=== PATIENT | female | born 1935 | race Caucasian/White ===

== ENCOUNTER 2017-09-15 14:58 | Inpatient (IN) | payer MEDICARE ==
[~2017-09-15] VITALS: Ht 157.5 cm; Wt 90.7 kg
[~2017-09-15 14:58] MED LIST: ALLOPURINOL 30300 M2 PO; ANASTROZOLE1 MG PO; ATIVAN0.5 MG PO; BENADRYL25 MG PO; BISACODYL SUPP10 MG RECTAL; CARAFATE1 GM/10 ML PO; CELEXA20 MG PO; CIPROFLOXACIN500 M1 PO; CO Q-10100 MG PO; CO-ENZYME Q-1010 MG PO; COLACE100 MG PO; COZAAR 50 MG TA50 M1 PO; COZAAR 50 MG TA50 M2 PO; CRANBERRY URIN1 EACH PO; DOC-Q-LACE100 MG PO; EDECRIN PO; LEVAQUIN 500 M500 MG PO; MACROBID 100 M100 M2 PO; MACROBID 100 M100 M3 PO; MIRALAX17 GM PO; NEXIUM40 MG PO; NORCO 5-325 TA1 EAC1 PO; NORCO 5-325 TA1 EACH PO; PRAVACHOL40 MG PO; PROBIOTIC1 EAC1 PO; SUPER B-50 COM1 EACH PO; TURMERIC500 M2 PO; TURMERIC500 MG PO; TYLENOL325 MG PO; VITAMIN B-12500 MCG PO; VITAMIN B12-FO1 EAC1 PO; VITAMIN D2000 UNIT PO; VITAMIN D3400 UNIT PO; VITAMINC500 PO; [UNRECOGNIZED DRUG - OTHER] PO
[2017-09-15 15:02] VITALS: BP 155/46
[2017-09-15] MEDS ORDERED: LASIX 20 MG TAB20 MG PO (15:16)
[2017-09-15 16:00] LABS: ABSOLUTE BASOPHILS 0.1 thou/uL (0.0-0.2); ABSOLUTE EOSINOPHILS 0.1 thou/uL (0.0-0.7); ABSOLUTE LYMPHOCYTES 1.9 thou/uL (0.8-5.3); ABSOLUTE MONOCYTES 0.5 thou/uL (0.0-1.2); ABSOLUTE NEUTROPHILS 5.8 thou/uL (1.6-8.1); BASOPHILS 0.8 %; EOSINOPHILS 1.5 %; HEMATOCRIT 40.2 % (37.0-47.0); HEMOGLOBIN 13.4 gm/dL (12.0-15.0); LYMPHOCYTES 22.4 %; MCH 32.4 pg (26.0-34.0); MCHC 33.4 g/dL (28.0-37.0); MCV 97.3 fL (80.0-100.0); MONOCYTES 5.9 %; MPV 8.4 fl. (7.2-11.1); NUCLEATED RBCS 0 /100WBC; PLATELET COUNT* 277 thou/uL (150-400); POLYS 69.4 %; RBC 4.14 mil/uL (4.20-5.00); RDW-CV 15.7 % (10.5-14.5); WBC 8.3 thou/uL (4.0-11.0)
[2017-09-15 16:05] LABS: ANION GAP 4 mmol/L (7-16); BUN 33 mg/dL (7-18); CALCIUM 9.1 mg/dL (8.5-10.1); CHLORIDE 100 mmol/L (98-107); CO2 30 mmol/L (21-32); CREATININE 1.1 mg/dL (0.6-1.3); GLUCOSE 145 mg/dL (70-99); SODIUM 134 mmol/L (136-145)
[2017-09-15 16:16] LABS: ALBUMIN 3.5 g/dL (3.4-5.0); ALKALINE PHOSPHATASE 44 U/L (46-116); NT-PRO BRAIN NAT PEPTIDE 119 pg/mL (<300); SGOT 58 U/L (15-37); SGPT 36 U/L (30-65); TOTAL BILIRUBIN 0.4 mg/dL (<0.1-1.0); TOTAL PROTEIN 7.6 g/dL (6.4-8.2); TROPONIN-I LEVEL <0.06 ng/mL (<0.06)
[2017-09-15 16:20] LABS: URINE BILIRUBIN NEGATIVE (Negative); URINE BLOOD NEGATIVE (Negative); URINE CLARITY CLEAR; URINE COLOR YELLOW; URINE GLUCOSE-RANDOM NEGATIVE (Negative); URINE KETONES NEGATIVE (Negative); URINE NITRITE-REFLEX NEGATIVE (Negative); URINE PROTEIN NEGATIVE (Negative); URINE UROBILINOGEN 0.2 E.U./dl (0.2-1.0)
[2017-09-15 16:30] LABS: URINE LEUKOCYTES-REFLEX 2+ (Negative)
[2017-09-15 16:35] LABS: MUCUS None Seen strn/LPF (None Seen); SQUAMOUS >10 Many /LPF (0-3)
[2017-09-15 16:36] LABS: URINE WBC-REFLEX >25 Many /HPF (0-5); WBC CLUMPS Few (None Seen)
[2017-09-15 16:37] LABS: CASTS None Seen /LPF (None Seen); CRYSTALS None Seen /LPF (None Seen); URINE RBC 0-2 Rare /HPF (0-2)
--- NOTE | 2017-09-15 18:55 | NUR ---
DOCUMENTATION OF NSG STUDENT RICKIE DAVIS REVIEWED, AGREE W/ SAME.
[2017-09-15 20:16] VITALS: BP 155/43
[2017-09-15 21:00] VITALS: BP 163/63
[2017-09-16 00:02] VITALS: BP 127/52
[2017-09-16 03:33] VITALS: BP 132/46
--- NOTE | 2017-09-16 06:24 | NUR ---
RECEIVED REPORT AND ASSUMED CARE AT 2030. PT TRANSFERED FROM ED TO ROOM 202. VSS. CARDIAC MONITORING IN PLACE. ASSESSMENT COMPLETED CHARTED. ADMIN COMPLETED BY NURSING. PT ON RA, UP WITH ASSIST WITH CANE TO BSC. MED REC COMPLETED. PT SON/DPOA AT BEDSIDE DURING ADMISSION. HOURLY ROUNDING COMPLETED, ALL NEEDS MET. POSITION CHANGES ENCOURAGED WITH PT, EDUCATED ON RISK FOR PRESSURE ULCERS. PT COMMUNICATES UNDERSTANDING. WILL CONTINUE TO MONITOR FOR REMAINDER OF THE SHIFT
--- NOTE | 2017-09-16 08:42 | NUR ---
ASSUMED PT. CARE AND RECEIVED REPORT AT 0730. PT A/OX4, MONITOR ON TRACING SR WITH PVC. PT. DENIES CURRENT PAIN. UPDATED ON PLAN OF CARE TO INCLUDE NPO FOR CV CONSULT. FULL ASSESSMENT COMPLETED, REFER TO CHARTING. PT. ASSISTED TO BSC, SLOW WITH MOVEMENT. CALL LIGHT IN REACH, FALL PRECAUTIONS IN PLACE. WILL CONTINUE WITH PLAN OF CARE.
[2017-09-16 09:00] VITALS: BP 161/61
[2017-09-16 11:00] VITALS: BP 158/56
--- NOTE | 2017-09-16 12:40 | EKG ---
[place] [address] ELECTROCARDIOGRAM REPORT Name: SHADE CHENGENDOLYN Yulisa Room: [address] IN [facility]#: [id number] Admission: 09/15/17 Attend Phys: Katia Reeves MD Discharge: Date of : 35 Report #: [id number] THIS REPORT FOR: //name// [facility] ED Test Date: 2017-09-15 Test Time: 15:03:48 Pat Name: WIL CHENG Department: Room: Gender: F Pill Packer: MS : 1935 Requested By: Anastasia Mercado Order Number: [id number] MD: Duglas Brown Measurements Intervals Campbell Rate: 73 P: 28 GA: 185 QRS: -15 QRSD: 104 T: 52 QT: 428 QTc: 472 Interpretive Statements Sinus rhythm Ventricular premature complex Probable left atrial enlargement Borderline left axis deviation Compared to ECG 03/09/2016 10:58:48 No significant changes Electronically Signed On 09-16-2017 12:40:37 CDT by Duglas Brown [email or web address] <ELECTRONICALLY SIGNED> By: Duglas Brown MD, FAC 09/16/17 1240 1503 1503 Duglas Brown MD, [facility] /EPI
[2017-09-16] MEDS ORDERED: ASPIR 8181 MG PO (13:57)
[2017-09-16] MEDS ORDERED: CIPRO500 MG PO (13:57)
[2017-09-16 14:15] VITALS: BP 158/56
--- NOTE | 2017-09-16 14:45 | NUR ---
DC ORDERS RECEIVED. IV AND MONITOR REMOVED. PT. AND SON GIVEN DC INSTRUCTIONS, SCRIPTS, AND CARENOTES. PT. LEFT VIA WHEELCHAIR TO RETURN HOME IN PERSONAL VEHICLE, ALL BELONGINGS ACCOUNTED FOR.
--- NOTE | 2017-10-05 10:50 | CON ---
[address] [address] CONSULTATION Name: SKYLARWIL L Room: [address]R.#: [id number] Admission: 09/15/17 Attend Phys: Katia Reeves MD Discharge: 09/16/17 Date of : 35 Report #: [id number] THIS REPORT FOR: //name// CC: Katia Garcia CHIEF COMPLAINT: Chest pain. HISTORY OF PRESENT ILLNESS: The patient is an 82-year-old woman who has a history of breast cancer, had just taken her blood pressure medicines and breast cancer medications and had a sudden onset of sharp left-sided pleuritic-type chest pain. It occurred at rest and was not associated with physical activity and she was not diaphoretic. It lasted for several minutes long. She went to the emergency room, her ECG was normal and she was admitted for evaluation and her subsequent cardiac troponin levels have all been normal. This morning, she is symptom-free. She has noted some other potential side effects with her estrogen receptor antagonist including swelling and shortness of breath, but these have not really been progressive. She has no documented history of heart disease. She thinks she had a heart catheterization at [place] in 2009. She also has a history of valvular heart disease. She is followed by Dr. Hastings. None of these problems have been significant over the last several months. Clinically, she is without exertional shortness of breath and has no edema. 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 PAST SURGICAL HISTORY: Status post left mastectomy for breast cancer. HOME MEDICATIONS: Include the anastrozole 1 mg daily, vitamins, Cozaar 50 mg at bedtime, Lasix 20 mg daily, docusate acetaminophen. ALLERGIES: SHE HAS ALLERGIES TO AMLODIPINE, ATORVASTATIN, COLCHICINE, CORN SYRUP, METOPROLOL, SULFA, AMOXICILLIN, AZITHROMYCIN, HYDROCHLOROTHIAZIDE, AND TRIAMTERENE. FAMILY HISTORY: Positive for hypertension. SOCIAL HISTORY: She is a nonsmoker. REVIEW OF SYSTEMS: GENERAL: No fevers or chills. GASTROINTESTINAL: [place] [address] CONSULTATION Name: WIL CHENG Room: [address]#: [id number] Admission: 09/15/17 Attend Phys: Katia Reeves MD Discharge: 09/16/17 Date of : 35 Report #: [id number] HEMATOLOGIC: No anemia or bleeding disorders. RENAL: No history of kidney failure. CARDIOVASCULAR: Positive chest pain. No shortness of breath, no palpitations, no orthopnea, no PND, mild edema. NEUROLOGIC: Denies seizures. Denies headaches or blurry vision. SKIN: No rashes. : Positive dysuria. ENDOCRINE: She is not known to be a diabetic. PHYSICAL EXAMINATION: VITAL SIGNS: Weight is 200 pounds. Blood pressure is 132/46 this morning, it was 160/61; pulse is 59, sinus rhythm on telemetry. GENERAL: This is a pleasant, moderately obese, elderly female. She is in no apparent distress. NECK: Supple, no jugular venous distention. CARDIOVASCULAR: Regular, I cannot hear a murmur. LUNGS: Clear to auscultation bilaterally. ABDOMEN: Soft, nontender. EXTREMITIES: There is no peripheral edema. SKIN: Warm, dry. PSYCHIATRIC: The patient has appropriate mood and affect. LABORATORY DATA: Hemoglobin is 13.4, white blood cell count is 8.3, platelet count is 277,000. Sodium is 134, potassium 5.0, chloride 100, CO2 is 30, BUN is 33, creatinine is 1.1. Troponin I is 0.06 x 2 sets. BNP is 119. Chest x-ray showed no acute radiographic abnormality. IMPRESSION: 1. Chest pain. Her symptoms seem pleuritic, possibly related to her prior surgeries versus another process. She has ruled out for an MT and she does have cardiovascular risk factors including age and hypertension as well as unknown lipid status. She can be evaluated with an outpatient stress test with her usual sap ppm consultant, Dr. Hastings and she was instructed to make an appointment next week for this. 2. Hypertension. We will continue with ARB therapy. 3. History of breast cancer. She will continue with routine medical therapy including her estrogen antagonist. Thank you for allowing us to participate in her care. <ELECTRONICALLY SIGNED> By: Duglas Brown MD, FACC 10/05/17 1050 1110 [id number] Brown MD, FACC /nt
== END 2017-09-16 14:34 | disposition still patient (30) | DRG 194 ==
LOC: M.ERS 14:58 → M.TBA-ER 19:00 → M.2W 20:27
PROVIDERS: Physician Assistant Surgical; ADMIT Internal Medicine
DX: R09.1 Pleurisy (principal); N39.0 Urinary tract infection, site not specified; M10.9 Gout, unspecified; I10 Essential (primary) hypertension; Z86.73 Personal history of transient ischemic attack (TIA), and cerebral infarction without residual deficits; Z90.49 Acquired absence of other specified parts of digestive tract; Z90.12 Acquired absence of left breast and nipple; Z87.440 Personal history of urinary (tract) infections; Z85.3 Personal history of malignant neoplasm of breast; Z79.899 Other long term (current) drug therapy; Z88.1 Allergy status to other antibiotic agents; Z88.0 Allergy status to penicillin; Z88.2 Allergy status to sulfonamides; Z91.018 Allergy to other foods; Z88.6 Allergy status to analgesic agent; Z82.49 Family history of ischemic heart disease and other diseases of the circulatory system

== ENCOUNTER → 2018-05-30 | Outpatient (CLI) | payer MEDICARE ==
[~2018-05-30] MED LIST changes: +ASPIR 8181 MG PO; +CIPRO500 MG PO; +LASIX 20 MG TAB20 MG PO
== END ==
LOC: M.RAD 14:52
DX: R92.8 Other abnormal and inconclusive findings on diagnostic imaging of breast (principal); Z90.12 Acquired absence of left breast and nipple

== ENCOUNTER → 2018-06-22 | Outpatient (CLI) | payer MEDICARE | LOC: M.CT 06-18 15:42 | DX: R59.1 Generalized enlarged lymph nodes (principal); I11.9 Hypertensive heart disease without heart failure; R91.8 Other nonspecific abnormal finding of lung field; C50.919 Malignant neoplasm of unspecified site of unspecified female breast; M10.9 Gout, unspecified; Z90.49 Acquired absence of other specified parts of digestive tract; Z90.12 Acquired absence of left breast and nipple ==

== ENCOUNTER → 2018-11-28 | Outpatient (CLI) | payer MEDICARE ==
[~2018-11-28] MED LIST changes: +ROSUVASTATIN CA40 MG PO; +ZYLOPRIM300 MG PO
== END ==
LOC: M.CT 06-28 10:30
DX: R91.1 Solitary pulmonary nodule (principal); J98.4 Other disorders of lung; N28.1 Cyst of kidney, acquired; C50.412 Malignant neoplasm of upper-outer quadrant of left female breast

== ENCOUNTER 2018-12-20 17:42 | Inpatient (IN) | payer MEDICARE ==
[~2018-12-20] VITALS: Ht 157.5 cm; Wt 103.0 kg
[~2018-12-20 17:42] MED LIST changes: -ROSUVASTATIN CA40 MG PO
[2018-12-20 17:47] VITALS: BP 167/53
[2018-12-20 18:22] LABS: ABSOLUTE EOSINOPHILS 0.1 thou/uL (0.0-0.7); ABSOLUTE LYMPHOCYTES 1.9 thou/uL (0.8-5.3); ABSOLUTE MONOCYTES 0.5 thou/uL (0.0-1.2); BASOPHILS 0.3 %; EOSINOPHILS 2.2 %; HEMATOCRIT 42.8 % (37.0-47.0); HEMOGLOBIN 14.4 gm/dL (12.0-15.0); MCH 31.6 pg (26.0-34.0); MCHC 33.7 g/dL (28.0-37.0); MCV 93.9 fL (80.0-100.0); MONOCYTES 8.2 %; MPV 7.4 fl. (7.2-11.1); NUCLEATED RBCS 0 /100WBC; PLATELET COUNT* 224 thou/uL (150-400); POLYS 60.3 %; RBC 4.55 mil/uL (4.20-5.00); RDW-CV 13.8 % (10.5-14.5); WBC 6.6 thou/uL (4.0-11.0)
[2018-12-20 18:29] LABS: PROTIME 10.6 Seconds (9.20-11.50)
[2018-12-20 18:33] LABS: CALCIUM 9.6 mg/dL (8.5-10.1); CREATININE 1.2 mg/dL (0.6-1.3); POTASSIUM 4.2 mmol/L (3.5-5.1)
[2018-12-20 18:38] LABS: ALBUMIN 3.6 g/dL (3.4-5.0); TOTAL BILIRUBIN 0.2 mg/dL (<0.1-1.0); TOTAL PROTEIN 7.1 g/dL (6.4-8.2)
[2018-12-20 19:50] VITALS: BP 172/53
[2018-12-20 20:00] VITALS: BP 171/57
[2018-12-21] VITALS: BP 143/50
[2018-12-21 01:32] LABS: CHOLESTEROL 283 mg/dL (<200); HDL CHOLESTEROL 40 mg/dL (>40); LDL CHOLESTEROL 209 mg/dL (<100); TC:HDL 7.1 Ratio (Not establshd); TRIGLYCERIDE 174 mg/dL (<150); VLDL 35 mg/dL (<40)
[2018-12-21 01:34] LABS: SERUM ASSESSMENT CLEAR
[2018-12-21 03:29] LABS: URINE BILIRUBIN NEGATIVE (Negative); URINE BLOOD NEGATIVE (Negative); URINE CLARITY CLOUDY; URINE COLOR YELLOW; URINE GLUCOSE-RANDOM NEGATIVE (Negative); URINE KETONES NEGATIVE (Negative); URINE LEUKOCYTES-REFLEX 1+ (Negative); URINE NITRITE-REFLEX POSITIVE (Negative); URINE PROTEIN NEGATIVE (Negative); URINE SPECIFIC GRAVITY 1.015 (1.005-1.030); URINE UROBILINOGEN 0.2 E.U./dl (0.2-1.0)
[2018-12-21 04:00] VITALS: BP 116/41
[2018-12-21 04:12] LABS: SQUAMOUS 0-3 Few /LPF (0-3); WBC CLUMPS Moderate (None Seen)
[2018-12-21 04:13] LABS: BACTERIA-REFLEX >30 Many /HPF (None Seen); CASTS None Seen /LPF (None Seen); CRYSTALS None Seen /LPF (None Seen); MUCUS 0-3 Light strn/LPF (None Seen); URINE RBC 0-2 Rare /HPF (0-2); URINE WBC-REFLEX >25 Many /HPF (0-5)
--- NOTE | 2018-12-21 06:01 | NUR ---
REPORT RECIEVED FROM ER. ER REPORTED PTS NIH WAS 0, ON ADMISSION TO FLOOR, PT HAD LEFT SIDED FACIAL DROOP, SLURRED SPEACH, AND WEAKNESS. NEUROLOGY CONSULT SENT OUT. ADMISSION DOCUMENTED. PT SENT TO MRI. PT PULLED OUT IV THIS SHIFT AND REFUSED ANOTHER IV AT THIS TIME. NOTIFIED. UA OBTAINED. TELE MONITOR IN PLACE. PT UP TO BSC TO VOID. WILL CONTINUE WITH PLAN OF CARE.
[2018-12-21 07:30] VITALS: BP 115/42
[2018-12-21 10:48] LABS: ALBUMIN 3.3 g/dL (3.4-5.0); CALCIUM 9.2 mg/dL (8.5-10.1); POTASSIUM 4.7 mmol/L (3.5-5.1); TOTAL BILIRUBIN 0.3 mg/dL (<0.1-1.0); TOTAL PROTEIN 6.5 g/dL (6.4-8.2)
[2018-12-21 12:08] VITALS: BP 111/48
--- NOTE | 2018-12-21 14:17 | NUR ---
Pt is A&O. Resides at home with her son and dtr. Pt states that she has a lady that comes in once/week to assist with bathing. Pt states that she is able to complete her own dressing. Son and dtr share IADLs. Pt has a cane, walker, wc and shower chair at home. Pt states that she is current with [facility]. Hx of [facility] . Hx of skilled at [facility]. Pt is hoping to return home at [place]. Following
[2018-12-21 16:26] VITALS: BP 158/59
--- NOTE | 2018-12-21 17:54 | NUR ---
VSS, ASSUMED CARE IN THE AM, ASSESSMENT PERFOREMD AND CHARTED, FALL PRECAUTIONS IN PLACE AND CALL LIGHT IN REACH, PT IS A&O4 AMD IS UP WITH ONE TO BSC, PT DENIES ANY PIAN HER NIH IS A 3, PT GOAL IS TO WORK WITH PT/OT/SP, AND ALSO SIT UP IN CHAIR, AT THIS TIME PT HAVE MET GOALS, PT IS TRACING SR/SB ON THE MONITOR, HOURLY ROUNDS COMPLETED.
--- NOTE | 2018-12-21 18:24 | EKG ---
[place] [address] ELECTROCARDIOGRAM REPORT Name: SKYLARWIL Room: [address] ADM IN .R.#: [id number] Admission: 12/20/18 Attend Phys: Tammy Correa Discharge: Date of : 35 Report #: [id number] THIS REPORT FOR: //name// [facility] ED Test Date: 2018-12-20 Test Time: 17:52:39 Pat Name: WIL CHENG Department: Room: [facility] Gender: F Pad Extraction Tender: vt : 1935 Requested By: Tesfaye Marquez Order Number: [id number] MD: Hayder Celis Measurements Intervals Welcome Rate: 65 P: 61 IA: 182 QRS: -9 QRSD: 105 T: 59 QT: 448 QTc: 466 Interpretive Statements Sinus rhythm Atrial premature complex Compared to ECG 09/15/2017 15:03:48 Atrial premature complex(es) now present Ventricular premature complex(es) no longer present Electronically Signed On 12-21-2018 18:24:15 CDT by Hayder Celis [email or web address] <ELECTRONICALLY SIGNED> By: Hayder Celis MD, FACC 12/21/18 1824 175 [id number] Hayder Celis MD, FACC /EPI
[2018-12-21 19:40] VITALS: BP 129/54
[2018-12-21 23:07] LABS: GLYCOHEMOGLOBIN (HGB A1C) 5.6 % (4.8-5.6)
[2018-12-22] VITALS: BP 107/56
[2018-12-22 04:00] VITALS: BP 111/51
--- NOTE | 2018-12-22 04:37 | NUR ---
PT ALERT AND ORIENTED. VSS ON RA. ASSESSMENT DOCUMENTED. NO IV ACCESS AT THIS TIME. PT TO BATHROOM WITH WALKER. SON AT BEDSIDE BEGINNING OF SHIFT. PT DENIES PAIN, N/V THIS SHIFT. ANTICIPATED DC TODAY. PT SLEPT MOST OF SHIFT. CALL LIGHT WITHIN REACH. HOURLY ROUNDINGS MADE. WILL CONTINUE TO MONITOR.
[2018-12-22 08:00] VITALS: BP 155/46
--- NOTE | 2018-12-22 10:01 | NUR ---
ASSUMED PT CARE AT 0800, AOX4, UP WITH ASSIST, USES WALKER, O2 SAT 90'S RA. TRACING SINUS HOPE ON TELE. PT DENIES PAIN, WANTS TO GO HOME TODAY. VSS, AM ASSESSMENT CHARTED, MEDS GIVEN PER MAR, CALL LIGHT WITHIN REACH, HOURLY ROUNDING, WILL CONTINUE TO MONITOR.
[2018-12-22] MEDS ORDERED: ROSUVASTATIN CA40 MG PO (11:22)
[2018-12-22 11:23] VITALS: BP 155/46
[2018-12-22 11:30] VITALS: BP 137/46
[2018-12-22 13:10] VITALS: BP 155/46
--- NOTE | 2018-12-22 15:46 | NUR ---
DISCHARGE PLAN DISCUSSED WITH THE PT AND SON. DISCHARGE/MEDICATION SCRIPT PACKET GIVEN. REMINDED TO FOLLOW UP WITH PCP. PT HOME WITH HOME HEALTH AND PT. TELE REMOVED, LEFT THE UNIT VIA WHEELCHAIR.
--- NOTE | 2018-12-24 09:06 | NUR ---
LATE ENTRY FOR 12/22 AT 1300-PT.TO BE DISCHARGED TODAY. CALL FROM ANIL, CHARGE NURSE. FAMILY WOULD LIKE AND WOULD LIKE [facility]. ANIL TO FAX ORDERS,FACE SHEET AND H&P TO [employer] [phone] AND CALL THEM AT [phone]. [facility] CONFIRMED ,THIS AM ,THEY RECEIVED ORDERS. NOTIFIED [facility] THIS AM/LUCIA THAT PT.DISCHARGED 12/22.
--- NOTE | 2018-12-28 14:24 | CON ---
[address] [address] CONSULTATION Name: WIL CHENG Room: [address] IN M.R.#: [id number] Admission: 12/20/18 Attend Phys: Tammy Correa Discharge: 12/22/18 Date of : 35 Report #: [id number] THIS REPORT FOR: //name// CC: Janeth Handy DATE OF SERVICE: 12/20/2018 HISTORY OF PRESENT ILLNESS: This is an 83-year-old female patient who was seen by me for slurred speech. The symptoms started about 03:30. It was abrupt in onset. She is right handed. She also had some facial weakness on the left side. There is some question that the symptoms became better, but there is no documentation. She does not think she is much different than she was at 03:30. She does have some generalized muscle weakness. REVIEW OF SYSTEMS: Positive for gout, TIA, heart catheterization, hypertension, and mastectomy. This was a relevant 14-point review of system. PAST MEDICAL HISTORY: Positive for hypertension. FAMILY HISTORY: Negative for early age stroke. SOCIAL HISTORY: She does not smoke. PHYSICAL EXAMINATION: Patient's examination indicates that she is alert, responsive to me. Her speech looks slurred. She said she has some focal problem, which makes her speech slurred, but it looks more slurred, but she does not think she is any different than 03:30 this afternoon. She does appear to have a facial weakness on the left side. Strength checking is difficult, which she may be somewhat weak on the left side. Tone looks symmetrical. Reflexes look diminished on both sides. Cardiac examinations appear unremarkable. No respiratory difficulty or rhonchi was noticed. There is no meningeal sign. There is no thyroid mass. Pulses are somewhat difficult to feel. Blood pressure is 171/57, respirations 16, and pulse is 64. LABORATORY DATA: Lab indicates a white count of 6.6. She did have a CT scan of the head, which does not show any definite abnormality. She does indicate she has some kidney problems. Her GFR is 43. She indicates she does not have any contraindication for MRI. IMPRESSION: It is possible this patient had a stroke. Since I do not know the patient's baseline, it is difficult for me to tell, but if the stroke occurred it happened at 03:30 this afternoon. Because of that, she is not a candidate for any TPA. I ordered a stat MRI of the brain, MRA of the head and neck to see if anything else needs to be done in this patient. [place] [address] CONSULTATION Name: WIL CHENG Room: [address] IN M.R.#: [id number] Admission: 12/20/18 Attend Phys: Tammy Correa Discharge: 12/22/18 Date of : 35 Report #: [id number] aspirin. We do need to check her lipid profile and we will order it for the morning and Dr. Cleveland will follow up this patient with you tomorrow. <ELECTRONICALLY SIGNED> By: Bayron Rivera MD 12/28/18 1424 [id number] [id number] Rivera MD /nt
== END 2018-12-22 14:51 | disposition home health service (06) | DRG 690 ==
LOC: M.ERS 17:42 → M.2W 18:56 → M.TBA-ER 18:56 → M.2W 20:14
PROVIDERS: Emergency Medicine; Psychiatry & Neurology Neuromuscular Medicine; ADMIT Internal Medicine
DX: N39.0 Urinary tract infection, site not specified (principal); G45.9 Transient cerebral ischemic attack, unspecified; I10 Essential (primary) hypertension; E78.5 Hyperlipidemia, unspecified; M10.9 Gout, unspecified; Z90.49 Acquired absence of other specified parts of digestive tract; Z90.12 Acquired absence of left breast and nipple; Z85.3 Personal history of malignant neoplasm of breast; Z79.82 Long term (current) use of aspirin; Z86.73 Personal history of transient ischemic attack (TIA), and cerebral infarction without residual deficits; Z88.2 Allergy status to sulfonamides; Z88.1 Allergy status to other antibiotic agents

== ENCOUNTER → 2019-01-22 | Outpatient (CLI) | payer MEDICARE ==
[~2019-01-22] MED LIST changes: +ROSUVASTATIN CA40 MG PO
--- NOTE | 2019-02-06 14:07 | PATH ---
[address] [address] PATHOLOGY RPT PROCEDURE Name: WIL CHENG Room: [facility] ROBLES Callahan#: [id number] Admission: 01/22/19 Date of : 35 Discharge: Report #: [id number] Path Case #: [id number] [facility] Accession Number: [id number] . 01 Material submitted: . lymph node - LEFT SUPRACLAVICULAR LYMPH NODE. Modifiers: left . 01 Clinical history: . 2.51 x 2.54 x 1.66 cm mass History of breast cancer with node involvement 3 years ago . 02 Diagnosis: A. Left supraclavicular lymph node: - ADENOCARCINOMA, WELL TO MODERATELY DIFFERENTIATED, TYPICAL OF BREAST PRIMARY, INVOLVING FATTY TISSUE. SEE COMMENT. . B. Left supraclavicular lymph node (for flow cytometry): - Pending. . (JC:mike; 01/23/2019) MBR 01/23/2019 1054 Local . 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 Breast tumor profile studies were performed on the prior left breast tissue 3:00, 7 cm from nipple, image-guided core biopsy which showed ductal adenocarcinoma, low-grade, with prominent perineural invasion ([id number] A2) with results as follows: . Estrogen receptor 91.3%, progesterone receptor 9.6%, HER2 negative, Ki67 20.5% ([id number]). . Minimal lymphoid tissue is present in A2 without definite lymph node identified. Fragments of benign skeletal muscle are noted in A3. . Results of flow cytometry which are pending on specimen B will be the subject of an addendum report. . Bre Villa ([facility] breast navigator) notified at approximately 10:30 on 01/23/2019. Specimen A reviewed with Dr. Remedios Velez who agrees with the diagnosis. . (CJ:mike; 01/23/2019) [place] [address] PATHOLOGY RPT PROCEDURE Name: WIL CHENG Room: [facility] [place]#: [id number] Admission: 01/22/19 Date of : 35 Discharge: Report #: [id number] Path Case #: [id number] . 02 Addendum: . Special studies report received from [facility], [address] [place] [address], [address], [place], [address], on case [id number], labeled with their number [id number], dated 01/25/2019. . Flow Cytometry: Hematologic Neoplasia Assessment . Clinical History . . Indication for Study Evaluation for hematolymphoid neoplasia . Specimen Tissue, Lt Supraclavicular, Lymph Node . Viability 27% (7AAD exclusion) . Interpretation Tissue, Lt Supraclavicular, Lymph Node: - In the sample analyzed, there is no evidence for a B-cell lymphoma (limited study). . Comments Hodgkin lymphoma and some large cell lymphomas cannot be categorically excluded by flow cytometric analysis. A limited panel of antibodies was performed due to low cell yield. Correlation with the morphologic findings and other clinical data is recommended. . Results should be interpreted with caution due to reduced viability of the specimen (26%). . . Populations Analyzed Lymphocytes: 3% A limited panel of antibodies (kappa, lambda, CD3, CD4, CD5, CD8, CD10, CD19, CD20, CD38, CD45, and CD57) was performed due to low cell yield. There is a mixed population of B-lymphocytes (0.5%) and T-lymphocytes (2.2%). No B-cell surface light chain restriction is detected. T-cells express CD3 and CD5. Other sadler T-cell antigens are not evaluated. The CD4:CD8 ratio is normal at 3.1:1. CD45 Negative 97% No significant reactivity with the markers tested Events/Debris: (may represent degenerated cells, unlysed red blood cells, debris, etc.) . [place] [address] PATHOLOGY RPT PROCEDURE Name: WIL CHENG Room: [facility]#: [id number] Admission: 01/22/19 Date of : 35 Discharge: Report #: [id number] Path Case #: [id number] A slide was reviewed for air quality instrument specialist purposes only. . Specimen Description Due to low cell count, the lab is unable to provide an accurate cell yield. A limited panel of antibodies was performed. Flow cytometry data needs to be interpreted within the context of all clinical, laboratory, and morphologic information. This sample is less than 50% viable which is considered suboptimal for routine clinical flow cytometry analysis. The analysis, however, is being reported because the sample is considered irreplaceable. . Pertinent Prior Test Results Received Date Test Type Specimen Type Result 01/18/2016 Virtual Image - Tissue Result Number: [id number] Technical Only . Reagent(s) Used CD3, CD4, CD5, CD8, CD10, CD19, CD20, CD38, CD45, CD57, kappa, lambda . at [employer] [employer] Gina Howell MD Hematopathologist . . Intended Use Flow cytometry is optimally used to immunophenotypically characterize abnormal populations when they are detected. Negative flow cytometry results do not exclude lymphoma or neoplasia. Possible false negative flow cytometry results may occur in, but are not limited to, the following: neoplastic cells in Hodgkin lymphoma are not typically adequately represented by routine clinical flow cytometry; neoplastic cells may be lost or inadequately represented due to degeneration, sample processing, sampling artifact, or patchy involvement; plasma cells are typically underrepresented by flow cytometry; immature cells/blasts may be underrepresented due to hemodilution; myeloproliferative disorders and low grade myelodysplasia may not have immunophenotypic abnormalities or increased blasts. Correlation with all available clinical, laboratory, and morphologic data is always necessary to assess for the possibility of false negative flow cytometry results and to establish a diagnosis. Each marker in this analysis was used to assess for potential antigenic abnormalities or to evaluate detected abnormalities. . Disclaimer(s) This test was performed at [facility] at [address], [place], [address] - Stereotyper Helper: Juan Ramon Simpson MD. [employer] is a business unit of [employer] a wholly-owned subsidiary of [place] [address] PATHOLOGY RPT PROCEDURE Name: WIL CHENG Room: [facility]#: [id number] Admission: 01/22/19 Date of : 35 Discharge: Report #: [id number] Path Case #: [id number] [employer] . Any image or images that accompany this report are investment representative images only and should not be used to render a diagnosis. . This test was developed and its performance characteristics determined by [employer]. It has not been cleared or approved by the Food and Drug Administration (FDA). The FDA has determined that such clearance or approval is not necessary. . For inquiries, the physician may contact Lab: [phone] . A complete copy of the report is on file. . Professional services performed by [employer] at [address], [place] [address]. Technical services performed by [facility] at [facility] [address], [address], [place] [address]. . (CJ:amtelly 01/28/2019) . . [facility]/01/28/2019 Addendum Electronically Signed by Uli Johnson MD, Pathologist Addendum #2: Special studies report received from [facility], [address] [place] [address], [address], [place], [address], on case [id number], labeled with their number [id number], dated 02/05/2019. . Breast/Prognostic Marker Analysis . Specimen Site: Lt Supraclavicular Lymph Node, Adenocarcinoma, Breast Primary Specimen ID #: [id number] . . ER (Estrogen Receptor) Present/Positive Percent: 95.00% Analysis: Manual Comments: Staining intensity: Strong . NC (Progesterone Receptor) Present/Positive Percent: 10.00% Analysis: Manual Comments: Staining intensity: Weak to moderate [place] [address] PATHOLOGY RPT PROCEDURE Name: WIL CHENG Room: [facility] [place]#: [id number] Admission: 01/22/19 Date of : 35 Discharge: Report #: [id number] Path Case #: [id number] Not Over-Expressed Score: 1+ Analysis: Manual . Ki-67 Borderline Proliferation Percent: 15.00% Analysis: Manual . Time to Fixation (Cold Ischemic Time): Not Provided Duration of Fixation: Not Provided Type of Fixative: 10% Neutral Buffered Formalin . at [facility] Nishi Mccarthy M.D. Pathologist . Methodology The HER2 Receptor protein expression is analyzed using the [place] HER2 rabbit monoclonal antibody (clone 4B5). This assay is used for diagnostic determination of the HER2 protein over-expression in paraffin embedded, formalin fixed breast cancer tissue on the [place] Benchmark. The specimen is processed using a secondary antibody-HRP conjugate detection system. The membrane staining of the tumor is determined either by manual score or image analysis. This antibody is intended for in vitro diagnostic use. The score is reported as 0, 1+, 2+, or 3+. This test is used for clinical purposes. . A rabbit monoclonal antibody (clone SP1) that recognized the Estrogen Receptor is used to perform immunohistochemistry on routinely fixed (formalin) paraffin embedded tissue on the [place] Benchmark. The specimen is processed using a secondary antibody-HRP conjugate detection system. The percentage of stained tumor nuclei is determined either manually or by image analysis. This test is intended for in vitro diagnostic use. This test is used for clinical purposes. . A rabbit monoclonal antibody (clone 1E2) that recognized the Progesterone Receptor is used to perform immunohistochemistry on routinely fixed (formalin) paraffin embedded tissue on the [place] Benchmark. The specimen is processed using a secondary antibody-HRP conjugate detection system. The percentage of stained tumor nuclei is determined either manually or by image analysis. This test is intended for in vitro diagnostic use. This test is used for clinical purposes. . A rabbit monoclonal antibody (clone 30-9) that recognized Ki67 is used to perform immunohistochemistry on routinely fixed (formalin) paraffin embedded tissue on the [place] Benchmark. The specimen is processed using a secondary antibody-HRP conjugate detection system. [facility] [place] [address] PATHOLOGY RPT PROCEDURE Name: WIL CHENG Room: [facility]#: [id number] Admission: 01/22/19 Date of : 35 Discharge: Report #: [id number] Path Case #: [id number] stained tumor nuclei is determined either manually or by image analysis. This test is intended for in vitro diagnostic use. This test is used for clinical purposes. . Intended Use: This antibody is intended for in vitro diagnostic (IVD) use. HER2 (4B5) is a rabbit monoclonal antibody intended for the semi-quantitative detection of HER2 antigen in sections of formalin-fixed, paraffin embedded normal and neoplastic tissue. . This antibody is intended for in vitro diagnostic (IVD) use. Estrogen Receptor (ER) (SP1) is a rabbit monoclonal antibody (IgG) that is intended for the qualitative detection of estrogen receptor (ER) antigen in sections of formalin-fixed, paraffin-embedded tissue. ER is a rabbit monoclonal antibody that recognizes human estrogen receptor alpha. . This antibody is intended for in vitro diagnostic (IVD) use. Progesterone Receptor (NC) (1E2) is a rabbit monoclonal antibody (IgG) that is intended for the qualitative detection of progesterone receptor (NC) antigen in sections of formalin fixed, paraffin embedded tissue. NC is a rabbit monoclonal antibody that recognizes the A and B forms of the human progesterone receptor. . This antibody is intended for in vitro diagnostic (IVD) use. Ki-67 (30-9) is a rabbit monoclonal antibody (IgG) directed against C-terminal portion of Ki-67 antigen. Staining for Ki-67 can be used to aid in assessing the proliferative activity of normal and neoplastic tissue. Ki-67 is a nuclear protein expressed in proliferating cells. During the cell cycle, the Ki-67 antigen is present in the G1, S, G2 and M phase but is absent in the G0 (quiescent phase). . . Disclaimer: This Test was performed by [employer], [employer] at [address] [place] [address], [place] [address], [place], [address]. . [employer] is a business unit of [employer] a wholly-owned subsidiary of [employer]. . This assay has not been validated on decalcified tissues. Results should be interpreted with caution if this specimen was decalcified given the likelihood of false negativity on decalcified specimens. . Any image(s) that accompany this report is/are a investment representative image(s) only and should not be used to render a diagnosis. . This interpretation is contingent on the specimen and the [place] [address] PATHOLOGY RPT PROCEDURE Name: WIL CHENG MATT Room: [facility].#: [id number] Admission: 01/22/19 Date of : 35 Discharge: Report #: [id number] Path Case #: [id number] . For any special tests/stains performed, known positive cells or tissues are tested with each marker and examined to ensure positivity. Positive and negative internal controls, if present, react appropriately. . This analysis is an adjunct to the evaluation of the referring physician and does not represent a final diagnosis. . The immunohistochemistry tests performed at [facility] were validated on tissue fixed in 10% neutral buffered formalin. The performance characteristics of the tests performed on tissue processed in other fixatives is not known. . HER2 testing at [employer] is performed in compliance with the 2018 updated ASCO/CAP Clinical Practice Guideline Focused Update. If the result is EQUIVOCAL (2+), it must be confirmed by an alternative assay such as FISH or Dual EUN. . REF: Awais CASON, DU Mchugh et al: Human Epidermal Growth Factor Receptor 2 Testing in Breast Cancer: ASCO/CAP Clinical Practice Guideline Focused Update. J Clin Oncol 36:7281-5703, 2018. . HER2 and ER/NC ASCO/CAP guidelines require fixation in neutral buffered formalin for a minimum of 6 and a maximum of 72 hours. Fixation times less than 6 hours may not adequately preserve cell proteins. Fixation times longer than 72 hours may cause excess cross-linking of proteins reducing the antigen available for staining. Either scenario can cause reduced staining; hence false negative results are possible and should be considered for these situations if the HER2 IHC score is less than 3+ or ER or NC is negative (no staining or <1% positive). It is recommended that specimens fixed longer than 72 hours with HER2 IHC scores less than 3+ be confirmed by HER2 FISH or Dual EUN. The time from biopsy/excision to fixation in formalin (cold ischemic time) must be less than 1 hour. Time to fixation (cold ischemic time) greater than 1 hour should be interpreted with caution. HER2 testing, mainly HER2 by FISH, is particularly vulnerable since excessive cold ischemic time results in preferential loss of HER2 probe signals that may lead to false negative results. . SCORE STAINING PATTERN IN TUMOR CELLS INTERPRETATION RESULTS 0 No staining observed or incomplete, faint membrane staining in less than or equal to 10% of tumor cells. Negative 1+ Incomplete, faint membrane staining in greater than 10% of tumor cells. Negative 2+ Weak to moderate complete membrane staining observed in greater than 10% of tumor cells. [place]* [place] [address] PATHOLOGY RPT PROCEDURE Name: WIL CHENG Room: [facility] [place]#: [id number] Admission: 01/22/19 Date of : 35 Discharge: Report #: [id number] Path Case #: [id number] *Must be confirmed by alternative assay (IHC/FISH/Dual EUN) 3+ Intense, complete membrane staining in greater than 10% of tumor cells. Positive . A complete copy of the report is on file. . Professional and Technical services performed by [facility] at [address], [address] [address]. . (CJ:shyam 02/05/2019) . . . MBR/02/05/2019 Addendum Electronically Signed by Uli Johnson MD, Pathologist . 02 Electronically signed: . Uli Johnson MD, Pathologist NPI- [id number] . 01 Gross description: . A. Received in formalin labeled "Wil Cheng, left supraclavicular lymph node," are 2 distinct needle cores of soriano soft tissue measuring 0.6 and 2.4 cm in length and less than 0.1 cm in diameter. The specimen is submitted in its entirety in cassettes A1 and A2. Due to the largely wispy nature of the specimen in cassette A1, it may not survive processing entirely. Additionally received in the same container are multiple fragments of needle cores of soriano soft tissue measuring 0.2 x 0.1 x 0.1 cm in aggregate dimensions. The specimen is filtered and entirely submitted in cassette A3. . B. Received in RPMI solution labeled "Wil Cheng, left supraclavicular lymph node," is a single needle core of soriano soft tissue measuring approximately 1.1 cm in length and less than 0.1 cm diameter. The specimen is forwarded to an outside laboratory for further testing. (TSD; 01/22/2019) TOB/TOB 01/22/20196 Local . 02 Pathologist provided ICD-10: C77.0 . 02 CPT . 527705 Performed at: 01 [facility] [place] [address], [place], [place] [id number] [facility] [address] [facility] [place] [address] PATHOLOGY RPT PROCEDURE Name: WIL CHENG Room: [facility] [place].#: [id number] Admission: 01/22/19 Date of : 35 Discharge: Report #: [id number] Path Case #: [id number] MD Marc Dick MD Phone: [phone] Performed at: 02 [facility] [address] , [place], [place] [id number] MD Uli Johnson MD Phone: [phone]
== END | disposition home or self-care (01) ==
LOC: M.ULTRA 08:30
DX: C77.0 Secondary and unspecified malignant neoplasm of lymph nodes of head, face and neck (principal); R59.0 Localized enlarged lymph nodes; Z85.3 Personal history of malignant neoplasm of breast; Z86.73 Personal history of transient ischemic attack (TIA), and cerebral infarction without residual deficits; Z88.2 Allergy status to sulfonamides; Z88.8 Allergy status to other drugs, medicaments and biological substances; Z79.899 Other long term (current) drug therapy; Z98.890 Other specified postprocedural states; Z79.82 Long term (current) use of aspirin